=== PATIENT | male | born 1990 | race American Indian/Alaskan Native ===

== ENCOUNTER 2016-09-01 01:46 | Emergency (ER) | payer OTHER ==
[2016-09-01 03:05] LABS: Bilirubin,Urine NEG (Negative); Blood,Urine NEG (Negative); Ketones,Urine NEG (Negative); Leukocyte Esterase,Urine NEG (Negative); Mucus,Urine FEW /HPF; Nitrite,Urine NEG (Negative); Protein,Urine <15 mg/dL mg/dL (Negative); Urobilinogen,Urine < 2.0 mg/dL (<2.0)
[2016-09-01 03:13] LABS: Basophils % (Auto) 0.7 % (0.0-1.8); Eosinophils % (Auto) 2.8 % (0.0-4.3); Hematocrit 44.3 % (35.5-45.6); Hemoglobin 14.9 gm/dl (11.8-15.2); Mean Corpuscular HGB Conc 34 % (32-34); Mean Corpuscular Hemoglobin 30 pg (28-32); Mean Corpuscular Volume 90 fl (84-94); Platelet Count 240 K/mm3 (140-440); Red Blood Count 4.91 M/mm3 (3.65-5.03); Red Cell Distribution Width 13.2 % (13.2-15.2); White Blood Count 7.5 K/mm3 (4.5-11.0)
[2016-09-01 03:28] LABS: Alanine Aminotransferase 21 units/L (7-56); Albumin/Globulin Ratio 1.4 %; Alkaline Phosphatase 71 units/L (35-129); Anion Gap 18 mmol/L; BUN/Creatinine Ratio 14.44; Blood Urea Nitrogen 13 mg/dL (9-20); Calcium 8.6 mg/dL (8.4-10.2); Carbon Dioxide 24 mmol/L (22-30); Chloride 101.6 mmol/L (98-107); Glucose 88 mg/dL (75-100); Lipase 44 units/L (13-60); Potassium 4.1 mmol/L (3.6-5.0); Sodium 139 mmol/L (137-145); Total Protein 6.8 g/dL (6.3-8.2)
[2016-09-01] MEDS ORDERED: MORPHINE IV ONE (08:36)
[2016-09-01] MEDS ORDERED: NACL 0.9% 1000 ML 1,000 ML IV ONE (08:36)
--- NOTE | 2016-09-01 08:48 | Emergency Department Report ---
HPI - General Chief Complaint: Abdominal Pain Time Seen by Provider: 09/01/16 08:16 - HPI HPI: This is a 25-year-old Afro-[place] male presents to the emergency department with complaint of lower abdominal pain that started last night about 9 PM and has been constant since. He denies any nausea, vomiting, diaphoresis, back pain , dysuria, penile discharge, fever. He did have 3 episodes of diarrhea at work overnight and the last one had a moderate amount of bright red blood mixed with stool. He did not take anything for symptoms prior to presentation. He does not have any past medical history. He does not have a current primary care physician. No recent travel or sick contacts at home. ED Past Medical Hx - Past Medical History Previous Medical History?: No - Surgical History Past Surgical History?: No - Social History Smoking Status: Current Some Day Smoker Substance Use Type: None - Medications Home Medications: Home Medications Medication Instructions Recorded Confirmed Last Taken Type HYDROcodone/APAP 5-325 [Jun[place] 1 each PO Q6HR PRN #10 tablet 09/01/16 Unknown Rx 5/325] ED Review of Systems ROS: Stated complaint: ABDOMINAL PAIN, BLOODY STOOL Other details as noted in HPI Comment: All other systems reviewed and negative Constitutional: denies: chills, fever Eyes: denies: eye pain, eye discharge, vision change ENT: denies: ear pain, throat pain Respiratory: denies: cough, shortness of breath, wheezing Gastrointestinal: abdominal pain, diarrhea. denies: melena Genitourinary: denies: urgency, dysuria Musculoskeletal: denies: back pain, joint swelling, arthralgia Skin: denies: rash, lesions Neurological: denies: headache, weakness, paresthesias Physical Exam - Physical Exam Vital Signs: Vital Signs 09/01/16 09/01/16 09/01/16 02:10 08:11 08:16 Temperature 98.4 F Pulse Rate 55 L 65 Respiratory 17 18 16 Rate Blood Pressure 124/75 Blood Pressure 111/72 [Right] O2 Sat by Pulse 100 100 99 Oximetry Physical Exam: GENERAL: The patient is well-developed well-nourished. HEENT: Normocephalic. Atraumatic. Extraocular motions are intact. Patient has moist mucous membranes. NECK: Supple. Trachea is midline. CHEST/LUNGS: Clear to auscultation. There is no respiratory distress noted. HEART/CARDIOVASCULAR: Regular. There is no tachycardia. There is no gallop rub or murmur. ABDOMEN: Abdomen is soft. Tenderness to palpation to the lower quadrants of the abdomen. No guarding or rebound tenderness. Patient has normal bowel sounds. There is no abdominal distention. SKIN: Skin is warm and dry. RECTAL: No visible lesions or visible or palpable hemorrhoids. There is no gross blood seen. Stool obtained was negative on guaiac testing. NEURO: The patient is awake, alert, and oriented. The patient is cooperative. The patient has no focal neurologic deficits. The patient has normal speech and gait. MUSCULOSKELETAL: There is no tenderness or deformity. There is no limitation range of motion. There is no evidence of acute injury. ED Course Vital Signs 09/01/16 09/01/16 09/01/16 02:10 08:11 08:16 Temperature 98.4 F Pulse Rate 55 L 65 Respiratory 17 18 16 Rate Blood Pressure 124/75 Blood Pressure 111/72 [Right] O2 Sat by Pulse 100 100 99 Oximetry ED Medical Decision Making - Lab Data Result diagrams: 09/01/16 02:57 09/01/16 02:57 - Radiology Data Radiology results: report reviewed, image reviewed interpreted by me: Abdominal x-ray shows nonspecific nonobstructive bowel gas. CT of the abdomen and pelvis with IV contrast shows trace pelvic ascites of uncertain etiology. No acute inflammatory process is appreciated. - Medical Decision Making 25-year-old male presents with sharp lower abdominal pain since last night as well as 3 episodes of diarrhea with some alleged blood seen. Rectal exam, there is no gross blood, and the stool obtained was negative on guaiac testing. He has some tenderness to palpation of lower quadrants of the abdomen but his abdomen is not rigid or toxic. Labs are unremarkable. Vital signs stable throughout his ED course. Abdominal x-ray does not show any acute process. CT of the abdomen and pelvis with IV contrast shows some trace pelvic ascites of unknown etiology but otherwise no acute process. Patient appears safe for discharge home at this time. He was given referrals for primary care and a referral for gastroenterology for follow-up regarding his abdominal pain and alleged rectal bleeding as he may need a colonoscopy in the near future. He will return to the ER for any worsening of symptoms or any acute distress. - Differential Diagnosis hemorrhoids, malignancy, colitis, diverticulitis, diverticulosis Critical Care Time: No Critical care attestation.: If time is entered above; I have spent that time in minutes in the direct care of this critically ill patient, excluding procedure time. ED Disposition Clinical Impression: Rectal bleeding Abdominal pain Qualifiers: Abdominal location: lower abdomen, unspecified Qualified Code(s): R10.30 - Lower abdominal pain, unspecified Disposition: TO HOME OR SELFCARE Is pt being admited?: No Condition: Stable Instructions: Rectal Bleeding (ED), Abdominal Pain (ED) Additional Instructions: Please follow-up with a primary care physician in the next few days. I given a referral for [facility], Dr. Connelly, to follow up regarding your abdominal pain, rectal bleeding. Return to the emergency department with any worsening of your symptoms or any acute distress. You've been prescribed a medication that is sedating. Therefore this medication cannot be mixed with alcohol, or taken prior to driving, working, or being responsible for children. Prescriptions: HYDROcodone/APAP 5-325 [Jun[place] 5/325] 1 each PO Q6HR PRN #10 tablet PRN Reason: Pain Referrals: JOSE M OLMSTEAD MD [Staff Physician] - 3-5 Days AMRITA CONNELLY MD [Staff Physician] - 3-5 Days [facility] [Outside] - 3-5 Days Time of Disposition: 10:43
--- NOTE | 2016-09-01 09:18 | XRay Report ---
ABDOMEN, 2 views: History: Abdominal pain. There is no evidence of free air beneath the diaphragms. The gas pattern within the abdomen is unremarkable. There is no evidence of bowel dilatation, significant air-fluid levels, or pathologic calcifications. Organ shadows are unremarkable. IMPRESSION: Unremarkable abdomen.
[2016-09-01] MEDS ORDERED: NACL ONE (09:43)
--- NOTE | 2016-09-01 10:34 | Cat Scan Report ---
CT SCAN OF THE ABDOMEN AND PELVIS WITH CONTRAST: HISTORY: Abdominal pain. TECHNIQUE: Helical CT in 1.25mm intervals following IV contrast. Sagittal and coronal reconstructions. FINDINGS: The liver is normal in size and is without focal defect. No gallstones or biliary dilatation are noted. The spleen and pancreas demonstrate a normal size and attenuation with no evidence of abnormal mass. The kidneys are normal in size and position with no evidence of hydronephrosis or mass. Normal bladder. The adrenal glands are normal. The abdominal aorta is normal. The bowel loops are within normal limits given no oral contrast was administered. The appendix is normal. There is trace pelvic ascites. No abscess, free air or adenopathy. IMPRESSION: Trace pelvic ascites of uncertain etiology. No acute inflammatory process is appreciated.
[2016-09-01 11:07] VITALS: BP 116/58
== END 2016-09-01 11:06 | disposition home or self-care (01) ==
LOC: ED 01:46
DX: K62.5 Hemorrhage of anus and rectum (principal); R10.30 Lower abdominal pain, unspecified; Z72.0 Tobacco use
CPT/HCPCS: 36415; 74020; 74177; 80053; 81001; 83690; 85025; 96361; 96374; 99284; J2270; J7030; Q9967

== ENCOUNTER 2017-02-05 04:14 | Emergency (ER) | payer SELFPAY ==
[2017-02-05] MEDS ORDERED: TRIPLE ANTIBIOTIC TP ONE (05:16)
[2017-02-05] MEDS ORDERED: BOOSTRIX IM ONE (05:16)
[2017-02-05] MEDS ORDERED: XYLOCAINE 2%/ EPI 1:200,000 INFILTRATI ONE (05:16)
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
[2017-02-05 05:17] VITALS: BP 115/69
[2017-02-05] MEDS ORDERED: NORCO 5/325 PO ONE (05:41)
[2017-02-05] MEDS ORDERED: NORCO 5/325 ONE (05:41)
[2017-02-05] MEDS ORDERED: MOTRIN ONE (05:41)
[2017-02-05] MEDS ORDERED: MOTRIN PO ONE (05:41)
--- NOTE | 2017-02-05 06:26 | XRay Report ---
FINAL REPORT EXAM: XR HAND 3+V RT HISTORY: s/p punching glass window laceration of rt hand COMPARISONS: None. FINDINGS: Three views right hand Soft tissue swelling and irregularity around the right proximal interphalangeal joint. 1-2 millimeter radiodense foreign bodies are present dorsal to the right 4th and 5th proximal phalanges and proximal interphalangeal joints. No fracture or gross malalignment. IMPRESSION: No fracture or gross malalignment. There is soft tissue swelling over the right 4th greater than 5th proximal interphalangeal joints with overlying 1-2 millimeter radiodense foreign bodies.
== END 2017-02-05 08:05 | disposition home or self-care (01) ==
LOC: ED 04:14
DX: S61.411A Laceration without foreign body of right hand, initial encounter (principal); S61.511A Laceration without foreign body of right wrist, initial encounter; S60.551A Superficial foreign body of right hand, initial encounter; F17.200 Nicotine dependence, unspecified, uncomplicated; W25.XXXA Contact with sharp glass, initial encounter; Y93.89 Activity, other specified; Y92.89 Other specified places as the place of occurrence of the external cause; Y99.8 Other external cause status
CPT/HCPCS: 90471; 90715; A6250